=== PATIENT | female | born 1995 | race African-American/Black ===

== ENCOUNTER 2017-01-29 21:04 | Emergency (ER) | payer OTHER ==
[~2017-01-29] VITALS: Ht 160 cm; Wt 97.1 kg
[~2017-01-29 21:04] MED LIST: IBUPROFEN600 MG PO; ZITHROMAX PO; ZOFRAN ODT4 MG PO
== END 2017-01-29 22:44 | disposition left against medical advice (07) ==
LOC: CED 21:04
DX: Z53.21 Procedure and treatment not carried out due to patient leaving prior to being seen by health care provider (principal)

== ENCOUNTER 2017-02-24 19:50 | Emergency (ER) | payer OTHER ==
[~2017-02-24] VITALS: Ht 160 cm; Wt 97.1 kg
--- NOTE | ~2017-02-24 | EKG ---
PATIENT: SERG DAVIS UNIT #: [id number] Ventricular Rate: 102 BPM Atrial Rate: 102 BPM P-R Interval: 132 ms QRS Duration: 76 ms Q-T Interval: 334 ms QTC Calculation(Bezet): 435 ms P [place]: 57 degrees Calculated R [place]: 2 degrees Calculated T [place]: 21 degrees Diagnosis Line: Sinus tachycardia Diagnosis Line: Possible Left atrial enlargement Diagnosis Line: Left ventricular hypertrophy Diagnosis Line: Abnormal ECG Diagnosis Line: When compared with ECG of 23-MAY-2016 19:31, Diagnosis Line: No significant change was found Diagnosis Line: Confirmed by JEFFERY MACDONALD MD ([id number]) on Diagnosis Line: 02/28/2017 10:45:10 AM INTERPRETING MD: TORRES GUILLORY
== END 2017-02-24 22:24 | disposition home or self-care (01) ==
LOC: CED 19:50
DX: J06.9 Acute upper respiratory infection, unspecified (principal)
CPT/HCPCS: 93005; 99283